=== PATIENT | female | born 1990 | race Caucasian/White ===

== ENCOUNTER 2023-12-25 14:51 | Emergency (ER) | payer MEDICAID ==
[~2023-12-25 14:51] MED LIST: HYDRCRY2; PRON100T
[2023-12-25] MEDS ORDERED: CEPH500C PO (20:45)
== END 2023-12-25 16:39 | disposition left against medical advice (07) ==
LOC: ER 14:51
DX: T14.8XXA Other injury of unspecified body region, initial encounter (principal); Z53.21 Procedure and treatment not carried out due to patient leaving prior to being seen by health care provider; X58.XXXA Exposure to other specified factors, initial encounter; Y93.89 Activity, other specified; Y92.89 Other specified places as the place of occurrence of the external cause; Y99.8 Other external cause status

== ENCOUNTER 2023-12-25 17:24 | Emergency (ER) | payer MEDICAID, OTHER ==
[~2023-12-25] VITALS: Ht 154.9 cm; Wt 61.2 kg
[2023-12-25] MEDS: LET TOPICAL SOLN 5 ML TOP ONE (18:48)
[2023-12-25] MEDS: HYDROcodone-ACET 5/325MG TAB PO ONE (19:08)
[2023-12-25 19:22] VITALS: PULSE 77; RESP 16; O2SAT 99
[2023-12-25 19:45] VITALS: RESP 16
[2023-12-25] MEDS ORDERED: CEPH500C PO (20:45)
[2023-12-25] MEDS: TETANUS-DIPTH-ACEL PERTUSSIS 0.5ML SYR Tdap IM ONE (21:27)
[2023-12-25 21:41] VITALS: BP 128/90; PULSE 65; RESP 18; TEMP 98.2; O2SAT 98
== END 2023-12-25 21:46 | disposition home or self-care (01) ==
LOC: ER 17:24
DX: S01.01XA Laceration without foreign body of scalp, initial encounter (principal); X58.XXXA Exposure to other specified factors, initial encounter; Y93.89 Activity, other specified; Y92.89 Other specified places as the place of occurrence of the external cause; Y99.8 Other external cause status
CPT/HCPCS: 12002; 70450; 90471; 90715